=== PATIENT | female | born 1990 | race Caucasian/White ===

== ENCOUNTER → 2024-07-25 13:02 | Outpatient (BNVA) | payer MEDICAID, SELFPAY | PROVIDERS: Family Provider Counselor Professional; PCP Family Medicine; Visit Provider Psychiatry & Neurology Psychiatry | DX: F20.9 Schizophrenia, unspecified (principal) | CPT/HCPCS: 80061; 83036 ==

== ENCOUNTER 2024-08-18 16:36 | Inpatient (IN) | payer MEDICARE, MEDICAID, SELFPAY ==
[2024-07-28 13:04] VITALS: BP 134/81; BMI 26.2
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
[2024-08-18 16:43] VITALS: BP 124/76; PULSE 85; RESP 18; TEMP 36.4; O2SAT 95
--- NOTE | 2024-08-18 17:14 | ECG_ITS ---
[facility]: 2024[facility]08[facility]18 Pat Name: Celia Sevilla Department: Room: Gender: Female Broadcast Journalist: : 1990 Requested By: Sri Babb Order Number: [id number] [place] MD: Ese Ryan M.D. Measurements Intervals [place] Rate: 89 P: 67 MI: 148 QRS: 30 QRSD: 75 T: 39 QT: 339 QTc: 414 Interpretive Statements SINUS RHYTHM LOW QRS VOLTAGE IN PRECORDIAL LEADS [QRS DEFLECTION < 1.0 mV IN CHEST LEADS] No previous ECG available for comparison Electronically Signed On 08-18-2024 17:45:03 CIVIL ENGINEERING TECHNICIAN by Ese Ryan M.D. [email or web address]
[2024-08-18 17:46] LABS: Basophils # 0.1 10^3/uL (0.0-0.1); Basophils % 0.8 %; Eosinophils # 0.4 10^3/uL (0.0-0.8); Hematocrit 47.7 % (36-47); Lymphocytes # 1.5 10^3/uL (0.8-4.8); Lymphocytes % 20.2 %; Mean Corpuscular HGB Conc 33.8 g/dL (30-55); Mean Corpuscular Hemoglobin 30.1 pg (27-33); Mean Corpuscular Volume 89.3 fl (85-98); Mean Platelet Volume 10.4 fL (7.4-10.4); Monocytes # 0.6 10^3/uL (0.2-0.9); Neutrophils # 4.74 10^3/uL (1.8-7.7); Neutrophils % 64.7 %; Nucleated Red Blood Cells % 0 %; Platelet Count 358 10^3/cmm (157-399); Red Blood Count 5.34 10^6/uL (3.85-5.65); Red Cell Distribution Width 13.2 % (12.1-15.1); White Blood Count 7.33 10^3/uL (3.29-11.43)
[2024-08-18 17:57] LABS: HCG, Serum Qual Negative (Negative)
[2024-08-18 18:18] LABS: Alanine Aminotransferase 13 U/L (0-33); Albumin Level 4.6 g/dL (3.5-5.2); Alkaline Phosphatase 79 U/L (35-105); Aspartate Amino Transferase 12 U/L (0-32); Blood Urea Nitrogen 7 mg/dL (6-20); Calcium 9.3 mg/dL (8.5-10.5); Carbon Dioxide 25 mmol/L (22-29); Chloride 101 mmol/L (98-107); Globulin 1.9 g/dL (1.3-4.6); Glomerular Filtration Rate 95.8 mL/min (90-130); Glucose 120 mg/dL (65-115); Osmolality Calculated 283 mOsm/kg (285-295); Salicylate 0.6 mg/dL (3-10); Sodium 137 mmol/L (136-145); Thyroid Stimulating Hormone 2.94 uIU/mL (0.27-4.20); Total Bilirubin 0.2 mg/dL (0.15-1.2); Total Protein 6.5 g/dL (6.6-8.7)
[2024-08-18 18:30] LABS: Acetaminophen < 5.0 ug/mL (10-30); Alcohol Level < 10 mg/dL (0-10)
[2024-08-18 18:51] LABS: Bilirubin Urine Negative (Negative); Blood Urine Negative (Negative); Glucose Urine UA Negative (Normal); Ketones Urine Negative (Negative); Leukocyte Esterase Urine Trace (Negative); Nitrate Urine Negative (Negative); Protein Urine Negative (Negative); Specific Gravity, Urine 1.012 (1.005-1.030); Urine Appearance Clear (CLEAR); Urine Color Yellow (Yellow); pH Urine 6.5 (5-7)
[2024-08-18 18:56] LABS: Bacteria Urine 2+ /hpf; Hyaline Casts Urine 0-4 /lpf; RBC Urine 0-2 /hpf (0-2); WBC Urine 0-5 /hpf (0-5)
[2024-08-18 18:58] LABS: Amphetamines Screen Urine Negative (Negative); Barbiturates Screen Urine Negative (Negative); Benzodiazepines Screen Urine Negative (Negative); Cocaine Screen Urine Negative (Negative); Opiate Screen Urine Negative (Negative); PCP Screen Urine Negative (Negative); THC Screen Urine Negative (Negative)
--- NOTE | 2024-08-18 19:21 | PC.NURSE ---
I, Integrated Circuit Design Engineer, read patient her rights at 1645 as patient was sitting in a swanson bed chair. Patient stated that she had been 96'd 90 times before but I still read over her rights with her and gave her a copy of the rights paperwork. Patient accepted without incident.
[2024-08-18 20:50] VITALS: BP 109/74; PULSE 82; RESP 16; O2SAT 99
[2024-08-18 21:50] VITALS: BP 108/80; PULSE 80; RESP 17; TEMP 36.8; O2SAT 100
[2024-08-18 22:00] VITALS: BP 108/80; PULSE 80; RESP 17; TEMP 36.8; O2SAT 100
--- NOTE | 2024-08-18 22:23 | PC.ADMIT ---
[address] Admission Note: The patient,Celia Sevilla,34 y/o, was given written information regarding hospital policies, unit procedures and contact persons. Patient's smoking status: current every day smoker. Vital Signs - 8 hr 08/18/24 16:43 08/18/24 20:50 08/18/24 21:50 Temperature 97.6 F 98.2 F Pulse Rate 85 82 80 Respiratory Rate 18 16 17 Blood Pressure 124/76 109/74 108/80 Pulse Oximetry 95 99 100 Oxygen Delivery Method Room Air 08/18/24 22:00 08/18/24 22:15 Temperature 98.2 F Pulse Rate 80 Respiratory Rate 17 Blood Pressure 108/80 Pulse Oximetry 100 Oxygen Delivery Method Room Air ADMITTED FROM [facility] VIA WHEELCHAIR, SECURITY AND ER STAFF ON INVOLUNTARY 96 HOUR HOLD THAT ENDS ON 08/25/24 @ 1645. EVASIVE WITH ASSESSMENT, ANSWERS EVERY QUESTION NO OR PT DENIES. DENIES ANY AND ALL SUBSTANCE ABUSE. STATES SHE WAS IN A [facility]AT[facility] H[facility] AT [facility] 6 MONTHS AGO AND THAT SHE HAS A THERAPIST APPOINTMENT SET UP IN [place] NEXT WEEK. DENIES SI/HI AND AVH AT THIS TIME. PT DENIES BEING DIAGNOSED WITH SCHIZOPHRENIA OR ANY OTHER PSYCHIATRIC DIAGNOSIS, STATING I DON'T THINK ANYTHINGS WRONG WITH ME, I WAS JUST SLEEPING AND THEY BROUGHT ME HERE. PHARMACY LIST SHOWS PT PICKED UP LITHIUM, BUPROPRON, TOPAMAX, COGENTIN AND TRAZODONE ON 07/25/24 BUT PT STATE SHE DOES NOT TAKE ANY OF THOSE MEDS ANYMORE, I DON'T NEED THEM. DENIES PAIN. REPORTS LAST BM 08/18/24. SKIN ASSESSMENT COMPLETED AND IS UNREMARKABLE SHOWING NO ISSUES. RATES ANXIETY 4/10 AND DEPRESSION 5/10. OFFERED MEDICATIONS FOR ANXIETY AND TO SLEEP, PT DENIED. PT WAS GIVEN CHIPS, SANDWICH AND A DRINK AND SHE CONSUMED 100%. ORIENTATED TO UNIT. ASSISTED TO HER ROOM AND SHE LAID DOWN AND WENT TO SLEEP. SUPPORT WAS VOICED.
[2024-08-19 01:06] LABS: Lithium 0.4 mmol/L (0.6-1.2)
[2024-08-19 06:00] VITALS: BP 109/77; PULSE 101; RESP 17; TEMP 36.6; O2SAT 99
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
[2024-08-19] MEDS: nicotine 2 mg Gum BUCCAL (13:37)
[2024-08-19 14:00] VITALS: BP 129/86; PULSE 96; RESP 18; TEMP 36.6; O2SAT 99
[2024-08-19 22:00] VITALS: BP 119/80; PULSE 94; RESP 17; TEMP 36.7; O2SAT 98
[2024-08-20 06:00] VITALS: BP 95/67; PULSE 92; RESP 16; TEMP 36.7; O2SAT 96
[2024-08-20] MEDS: nicotine 2 mg Gum BUCCAL ×4 (08:06→19:56)
--- NOTE | 2024-08-20 09:05 | P.NPUPN_ITS ---
Subjective NPU 2 Subjective: Patient presented today seeming to be a bit animated per staff reports and direct observation. She reports that she is fine and denied any problems but spent the time asking strange questions like whether or not studied - [employer] but could not seem to describe what she meant then went on to speak about things possibly related to [place]. Otherwise she talked about wanting to be discharged and was unwilling to really talk about psychosis. Or medication. Mental Status Exam 2 MSE Comments: This is a well-nourished well-developed white female in hospital scrubs with limited grooming and eye contact. No abnormal movements, except for psychomotor retardation. Somewhat cooperative with exam in mild to moderate distress. Speech was increased rate and mostly normal volume. Mood described as I am fine but I do not want to be here; affect slightly subdued and irritable. Thought process, linear. Thought content: patient denied suicidal or homicidal thoughts/ideation, there were no delusions reported or noted but she did appeared guarded and having hyperreligious delusions, she denied auditory visual hallucinations but concerns for downplaying any symptoms was present. The patient denies any current thoughts of self-harm or harm to others. She denies any symptoms of depression, anxiety, or psychosis. She also denies any obsessive thoughts, paranoia, or auditory or visual hallucinations. Her mood appears irritable during the consultation. Attention and concentration appeared intact, and memory was unreliable, but none were formally tested. She is alert and oriented times person and place. Insight and judgment are impaired. Impulse control is impaired. Vitals/I&O/Wt Last Vital Signs Temp 98.0 F 08/20/24 06:00 Pulse 92 08/20/24 06:00 Resp 16 08/20/24 06:00 BP 95/67 08/20/24 06:00 Pulse Ox 96 08/20/24 06:00 O2 Del Method Room Air 08/18/24 22:15 08/19/24 08/20/24 08/20/24 22:59 06:59 14:59 Intake Total 440 / 440 Balance 440 / 440 Weight last 48 hrs Weight 61.779 kg Weight 60.419 kg Data NPU 08/18/24 17:22 08/18/24 17:22 A&P Assessment and plan (1) Acute psychosis: (2) Chronic schizophrenia: (3) Parent-child relational problem: (4) Noncompliance with medication regimen: Plan This is a 34-year-old white female with a long history of mental health and addiction issues with inpatient and outpatient services at [facility] on a limited basis going back to 2015 who presents on a 96-hour hold that she reports just represents her mother trying to control her. The patient appears irritable but denied any issues currently other than the conflict with her family denying depression, anxiety, or psychosis. She reports ongoing familial conflict with her mother, which seems to be a significant psychosocial stressor in her life. She has a history of substance use disorder but denies any current substance abuse issues. 1.? Consider restarting medications. She continues to be resistant to medication 2.? Continue every 15 minute checks for safety. 3.? Encourage individual, group and milieu therapies. 4. Encourage sober living treatment after discharge at the highest level care to which she is willing to commit. 5. Get collateral information. 6. Evaluate for safety against the backdrop of 96-hour hold. Involuntary Hold Information 2 96 Hour Hold: 96 Hour Involuntary Admission: Yes 96 Hour Hold Ending Date: 08/25/24 96 Hour Hold Ending Time: 16:45 Attestations NPU 2 Medical Necessity Statement*: Inpatient hospitalization is medically necessary and the clinically appropriate intervention at this time. Will monitor/initiate medications and make changes as indicated. Likely length of stay 5 to 7 days. Coding Level of Care Code Acute Code for Chg Fwd Diagnoses Acute psychosis F23 Chronic schizophrenia F20.9 Parent-child relational problem Z62.820 Noncompliance with medication regimen Z91.148
[2024-08-20 14:00] VITALS: BP 114/77; PULSE 70; RESP 16; TEMP 36.7; O2SAT 100
[2024-08-20 21:14] VITALS: BP 105/67; PULSE 60; RESP 18; TEMP 36.6; O2SAT 99
[2024-08-21 05:47] VITALS: BP 114/86; PULSE 81; RESP 18; TEMP 36.4; O2SAT 97
[2024-08-21] MEDS: nicotine 2 mg Gum BUCCAL (10:05)
[2024-08-21 14:00] VITALS: BP 117/81; PULSE 103; RESP 16; TEMP 36.9; O2SAT 96
[2024-08-21 20:09] VITALS: BP 130/86; PULSE 75; RESP 16; TEMP 36.6; O2SAT 97
--- NOTE | 2024-08-21 20:58 | W.PM.NPUPNS ---
Subjective NPU Subjective: Patient presented today reporting that she was fine. She continued to deny any interest in restarting past medication or initiating new medication. She continued to have moments where she seemed to be speaking to herself under her breath per staff reports and direct observation. She continued to downplay any symptoms, any problems outside of here, any need for any intervention other than being discharged. Mental Status Exam MSE Comments: This is a well-nourished well-developed white female in hospital scrubs with limited grooming and eye contact. No abnormal movements, except for psychomotor retardation. Somewhat cooperative with exam in mild to moderate distress. Speech was increased rate and mostly normal volume with no where the pauses after many questions. Mood described as I am fine but I do not want to be here; affect slightly subdued and irritable. Thought process, linear. Thought content: patient denied suicidal or homicidal thoughts/ideation, there were no delusions reported or noted but she did appeared guarded and having hyperreligious delusions, she denied auditory or visual hallucinations but concerns for downplaying any symptoms was present. The patient denies any current thoughts of self-harm or harm to others. She denies any symptoms of depression, anxiety, or psychosis. She also denies any obsessive thoughts, paranoia, or auditory or visual hallucinations. Her mood appears irritable during the consultation and she was seen often mouthing to herself instead of giving an audible response. Attention and concentration appeared intact, and memory was unreliable, but none were formally tested. She is alert and oriented times person and place. Insight and judgment are impaired. Impulse control is impaired. Vitals/I&O/Wt Last Vital Signs Temp 97.8 F 08/21/24 20:09 Pulse 75 08/21/24 20:09 Resp 16 08/21/24 20:09 BP 130/86 08/21/24 20:09 Pulse Ox 97 08/21/24 20:09 O2 Del Method Room Air 08/21/24 20:09 Weight last 48 hrs Weight 61.779 kg Data NPU 08/18/24 17:22 08/18/24 17:22 A&P Assessment and plan (1) Acute psychosis: (2) Chronic schizophrenia: (3) Parent-child relational problem: (4) Noncompliance with medication regimen: Plan This is a 34-year-old white female with a long history of mental health and addiction issues with inpatient and outpatient services at [facility] on a limited basis going back to 2016 who presents on a 96-hour hold that she reports just represents her mother trying to control her. The patient appears irritable but denied any issues currently other than the conflict with her family denying depression, anxiety, or psychosis. She reports ongoing familial conflict with her mother, which seems to be a significant psychosocial stressor in her life. She has a history of substance use disorder but denies any current substance abuse issues. 1.? Consider restarting medications. She continues to be resistant to medication including restarting her previous medication. May need a 21-day hold and forced medication. 2.? Continue every 15 minute checks for safety. 3.? Encourage individual, group and milieu therapies. 4. Encourage sober living treatment after discharge at the highest level care to which she is willing to commit. 5. Get collateral information. 6. Evaluate for safety against the backdrop of 96-hour hold. Involuntary Hold Information 96 Hour Hold: 96 Hour Involuntary Admission: Yes 96 Hour Hold Ending Date: 08/25/24 96 Hour Hold Ending Time: 16:45 Attestations NPU Medical Necessity Statement*: Inpatient hospitalization is medically necessary and the clinically appropriate intervention at this time. Will monitor/initiate medications and make changes as indicated. Likely length of stay 5 to 7 days. Coding Level of Care Code Acute Code for Chg Fwd Diagnoses Acute psychosis F23 Chronic schizophrenia F20.9 Parent-child relational problem Z62.820 Noncompliance with medication regimen Z91.148
[2024-08-22 06:00] VITALS: BP 118/77; PULSE 89; RESP 15; TEMP 36.7; O2SAT 99
[2024-08-22 13:44] VITALS: BP 115/78; PULSE 73; RESP 16; TEMP 36.8; O2SAT 97
[2024-08-22] MEDS: nicotine 2 mg Gum BUCCAL (17:28)
--- NOTE | 2024-08-22 17:42 | W.PM.NPUPNS ---
Subjective NPU Subjective: Patient presented today continuing to be resistant to medication and almost defiantly saying I am fine. We continue to discuss our concerns about her being off of medication and having the somewhat mercurial behavior that were seeing around the unit. We talked about the treatment team speaking to her family and there being concerns about how she is functioning. She continued to deny there being any reason to start any medication now that she would take care of everything once she was out of the hospital. Mental Status Exam MSE Comments: This is a well-nourished well-developed white female in hospital scrubs with limited grooming and eye contact. No abnormal movements, except for psychomotor retardation. Somewhat cooperative with exam in mild to moderate distress. Speech was increased rate and mostly normal volume with no where the pauses after many questions. Mood described as I am fine but I do not want to be here; affect slightly subdued and irritable. Thought process, linear. Thought content: patient denied suicidal or homicidal thoughts/ideation, there were no delusions reported or noted but she did appeared guarded and having hyperreligious delusions, she denied auditory or visual hallucinations but concerns for downplaying any symptoms was present. The patient denies any current thoughts of self-harm or harm to others. She denies any symptoms of depression, anxiety, or psychosis. She also denies any obsessive thoughts, paranoia, or auditory or visual hallucinations. Her mood appears irritable during the consultation and she was seen often mouthing to herself instead of giving an audible response. Attention and concentration appeared intact, and memory was unreliable, but none were formally tested. She is alert and oriented times person and place. Insight and judgment are impaired. Impulse control is impaired. Vitals/I&O/Wt Last Vital Signs Temp 98.2 F 08/22/24 13:44 Pulse 73 08/22/24 13:44 Resp 16 08/22/24 13:44 BP 115/78 08/22/24 13:44 Pulse Ox 97 08/22/24 13:44 O2 Del Method Room Air 08/22/24 13:44 Data NPU 08/18/24 17:22 08/18/24 17:22 A&P Assessment and plan (1) Acute psychosis: (2) Chronic schizophrenia: (3) Parent-child relational problem: (4) Noncompliance with medication regimen: Plan This is a 34-year-old white female with a long history of mental health and addiction issues with inpatient and outpatient services at [facility] on a limited basis going back to 2016 who presents on a 96-hour hold that she reports just represents her mother trying to control her. The patient appears irritable but denied any issues currently other than the conflict with her family denying depression, anxiety, or psychosis. She reports ongoing familial conflict with her mother, which seems to be a significant psychosocial stressor in her life. She has a history of substance use disorder but denies any current substance abuse issues. 1.? Consider restarting medications. She continues to be resistant to medication including restarting her previous medication. May need a 21-day hold and forced medication. 2.? Continue every 15 minute checks for safety. 3.? Encourage individual, group and milieu therapies. 4. Encourage sober living treatment after discharge at the highest level care to which she is willing to commit. 5. Get collateral information. 6. Evaluate for safety against the backdrop of 96-hour hold. Involuntary Hold Information 96 Hour Hold: 96 Hour Involuntary Admission: Yes 96 Hour Hold Ending Date: 08/25/24 96 Hour Hold Ending Time: 16:45 Attestations U Medical Necessity Statement*: Inpatient hospitalization is medically necessary and the clinically appropriate intervention at this time. Will monitor/initiate medications and make changes as indicated. Likely length of stay 5 to 7 days. Coding Level of Care Code Acute Code for Chg Fwd Diagnoses Acute psychosis F23 Chronic schizophrenia F20.9 Parent-child relational problem Z62.820 Noncompliance with medication regimen Z91.148
[2024-08-22 20:22] VITALS: BP 119/78; PULSE 80; RESP 18; TEMP 36.8; O2SAT 100
[2024-08-23 06:00] VITALS: RESP 16
--- NOTE | 2024-08-23 06:28 | PC.NURSE ---
pt is finally resting got resp 16 nurse notified
[2024-08-23 14:00] VITALS: BP 93/78; PULSE 80; RESP 18; TEMP 37.1; O2SAT 92
--- NOTE | 2024-08-23 15:48 | P.NPUPN_ITS ---
Subjective NPU 2 Subjective: Patient presented today essentially unchanged and her position on her situation. She continues to report that she is fine and there are no problems and that there is no need to initiate medication or engage in any significant treatment. She informs this program writer that once she is discharged she will arrange any treatment that she needs and take care of any concerns. She continues to endorse that her mother is the source of this issue and it has something to do with her mother owing her some money or something of that sort. We continue to discussed the risks, benefits and alternatives of initiating medication and she continues to decline. Mental Status Exam 2 MSE Comments: This is a well-nourished well-developed white female in hospital scrubs with limited grooming and eye contact. No abnormal movements, except for psychomotor retardation. Somewhat cooperative with exam in mild to moderate distress. Speech was increased rate and mostly normal volume with no where the pauses after many questions. Mood described as I am fine but I do not want to be here; affect slightly subdued and irritable. Thought process, linear. Thought content: patient denied suicidal or homicidal thoughts/ideation, there were no delusions reported or noted but she did appeared guarded and having hyperreligious delusions, she denied auditory or visual hallucinations but concerns for downplaying any symptoms was present. The patient denies any current thoughts of self-harm or harm to others. She denies any symptoms of depression, anxiety, or psychosis. She also denies any obsessive thoughts, paranoia, or auditory or visual hallucinations. Her mood appears irritable during the consultation and she was seen often mouthing to herself instead of giving an audible response. Attention and concentration appeared intact, and memory was unreliable, but none were formally tested. She is alert and oriented times person and place. Insight and judgment are impaired. Impulse control is impaired. Vitals/I&O/Wt Last Vital Signs Temp 98.7 F 08/23/24 14:00 Pulse 80 08/23/24 14:00 Resp 18 08/23/24 14:00 BP 93/78 08/23/24 14:00 Pulse Ox 92 08/23/24 14:00 O2 Del Method Room Air 08/22/24 13:44 Data NPU 08/18/24 17:22 08/18/24 17:22 A&P Assessment and plan (1) Acute psychosis: (2) Chronic schizophrenia: (3) Parent-child relational problem: (4) Noncompliance with medication regimen: Plan This is a 34-year-old white female with a long history of mental health and addiction issues with inpatient and outpatient services at [facility] on a limited basis going back to 2016 who presents on a 96-hour hold that she reports just represents her mother trying to control her. The patient appears irritable but denied any issues currently other than the conflict with her family denying depression, anxiety, or psychosis. She reports ongoing familial conflict with her mother, which seems to be a significant psychosocial stressor in her life. She has a history of substance use disorder but denies any current substance abuse issues. 1.? Consider restarting medications. She continues to be resistant to medication including restarting her previous medication. May need a 21-day hold and forced medication. 2.? Continue every 15 minute checks for safety. 3.? Encourage individual, group and milieu therapies. 4. Encourage sober living treatment after discharge at the highest level care to which she is willing to commit. 5. Get collateral information. 6. Evaluate for safety against the backdrop of 96-hour hold. Involuntary Hold Information 2 96 Hour Hold: 96 Hour Involuntary Admission: Yes 96 Hour Hold Ending Date: 08/25/24 96 Hour Hold Ending Time: 16:45 Attestations NPU 2 Medical Necessity Statement*: Inpatient hospitalization is medically necessary and the clinically appropriate intervention at this time. Will monitor/initiate medications and make changes as indicated. Likely length of stay 5 to 7 days. Coding Level of Care Code Acute Code for Chg Fwd Diagnoses Acute psychosis F23 Chronic schizophrenia F20.9 Parent-child relational problem Z62.820 Noncompliance with medication regimen Z91.148
[2024-08-23] MEDS: nicotine 2 mg Gum BUCCAL (17:58)
[2024-08-23 20:10] VITALS: BP 119/74; PULSE 112; RESP 19; TEMP 36.9; O2SAT 99
[2024-08-24 06:00] VITALS: BP 120/60; PULSE 66; RESP 16; TEMP 37; O2SAT 96
[2024-08-24] MEDS: nicotine 2 mg Gum BUCCAL (08:32)
--- NOTE | 2024-08-24 14:17 | PC.NURSE ---
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
[2024-08-24 14:22] VITALS: RESP 18
--- NOTE | 2024-08-24 18:38 | W.PM.NPUPNS ---
Subjective NPU Subjective: Patient presented today continuing to stay with her plan of not taking any medication. She continues to deny any need for medication but continues to have odd behaviors per staff and direct observation. She continues to be irritable per staff and continues to say that the only reason why she is here is that her mother owes her money and is trying to get her stuck here. She refuses any conversation about restarting her medication. Mental Status Exam MSE Comments: This is a well-nourished well-developed white female in hospital scrubs with limited grooming and eye contact. No abnormal movements, except for psychomotor retardation. Somewhat cooperative with exam in mild to moderate distress. Speech was increased rate and mostly normal volume with no where the pauses after many questions. Mood described as I am fine but I do not want to be here; affect slightly subdued and irritable. Thought process, linear. Thought content: patient denied suicidal or homicidal thoughts/ideation, there were no delusions reported or noted but she did appeared guarded and having hyperreligious delusions, she denied auditory or visual hallucinations but concerns for downplaying any symptoms was present. The patient denies any current thoughts of self-harm or harm to others. She denies any symptoms of depression, anxiety, or psychosis. She also denies any obsessive thoughts, paranoia, or auditory or visual hallucinations. Her mood appears irritable during the consultation and she was seen often mouthing to herself instead of giving an audible response. Attention and concentration appeared intact, and memory was unreliable, but none were formally tested. She is alert and oriented times person and place. Insight and judgment are impaired. Impulse control is impaired. Vitals/I&O/Wt Last Vital Signs Temp 98.6 F 08/24/24 06:00 Pulse 66 08/24/24 06:00 Resp 16 08/24/24 06:00 BP 120/60 08/24/24 06:00 Pulse Ox 96 08/24/24 06:00 O2 Del Method Room Air 08/22/24 13:44 08/24/24 08/25/24 08/25/24 22:59 06:59 14:59 Intake Total 120 / 560 Balance 120 / 560 Data NPU 08/18/24 17:22 08/18/24 17:22 A&P Assessment and plan (1) Acute psychosis: (2) Chronic schizophrenia: (3) Parent-child relational problem: (4) Noncompliance with medication regimen: Plan This is a 34-year-old white female with a long history of mental health and addiction issues with inpatient and outpatient services at [facility] on a limited basis going back to 2016 who presents on a 96-hour hold that she reports just represents her mother trying to control her. The patient appears irritable but denied any issues currently other than the conflict with her family denying depression, anxiety, or psychosis. She reports ongoing familial conflict with her mother, which seems to be a significant psychosocial stressor in her life. She has a history of substance use disorder but denies any current substance abuse issues. 1.? Consider restarting medications. She continues to be resistant to medication including restarting her previous medication. May need a 21-day hold and forced medication. 2.? Continue every 15 minute checks for safety. 3.? Encourage individual, group and milieu therapies. 4. Encourage sober living treatment after discharge at the highest level care to which she is willing to commit. 5. Get collateral information. 6. Evaluate for safety against the backdrop of 96-hour hold. We will either discharge her or file a 21-day hold tomorrow. Involuntary Hold Information 96 Hour Hold: 96 Hour Involuntary Admission: Yes 96 Hour Hold Ending Date: 08/25/24 96 Hour Hold Ending Time: 16:45 Attestations U Medical Necessity Statement*: Inpatient hospitalization is medically necessary and the clinically appropriate intervention at this time. Will monitor/initiate medications and make changes as indicated. Likely length of stay 5 to 7 days. Coding Level of Care Code Acute Code for [facility] Fwd Diagnoses Acute psychosis F23 Chronic schizophrenia F20.9 Parent-child relational problem Z62.820 Noncompliance with medication regimen Z91.148
[2024-08-24 19:55] VITALS: RESP 18
--- NOTE | 2024-08-24 19:55 | PC.NURSE ---
pt very agitated talking to self when asked if i could get vitals pt stated no i dont need them done. nurse notified
[2024-08-25 06:00] VITALS: RESP 16
--- NOTE | 2024-08-25 06:19 | PC.NURSE ---
pt had a rough night pt is finally resting resp are at 16 nurse notified
[2024-08-25 14:00] VITALS: BP 102/70; PULSE 99; RESP 18; TEMP 36.6; O2SAT 98
--- NOTE | 2024-08-25 16:51 | W.PM.NPUPNS ---
Subjective NPU Subjective: Patient presented today reporting that she was doing fine and continued to initially endorse a plan to move forward without medication. We discussed the fact that we had file for 21-day hold and that her hearing would be likely Wednesday or Wednesday. We discussed our plan at that point to proceed with forced medication and she reported a willingness to try something. We discussed the risks, benefits and alternatives of a trial of Invega and she understood and agreed to proceed as is documented in this note. Mental Status Exam MSE Comments: This is a well-nourished well-developed white female in hospital scrubs with limited grooming and eye contact. No abnormal movements, except for psychomotor retardation. Somewhat cooperative with exam in mild to moderate distress. Speech was increased rate and mostly normal volume with no where the pauses after many questions. Mood described as I am fine but I do not want to be here; affect slightly subdued and irritable. Thought process, linear. Thought content: patient denied suicidal or homicidal thoughts/ideation, there were no delusions reported or noted but she did appeared guarded and having hyperreligious delusions, she denied auditory or visual hallucinations but concerns for downplaying any symptoms was present. The patient denies any current thoughts of self-harm or harm to others. She denies any symptoms of depression, anxiety, or psychosis. She also denies any obsessive thoughts, paranoia, or auditory or visual hallucinations. Her mood appears irritable during the consultation and she was seen often mouthing to herself instead of giving an audible response. Attention and concentration appeared intact, and memory was unreliable, but none were formally tested. She is alert and oriented times person and place. Insight and judgment are impaired. Impulse control is impaired. Vitals/I&O/Wt Last Vital Signs Temp 97.9 F 08/25/24 14:00 Pulse 99 08/25/24 14:00 Resp 18 08/25/24 14:00 BP 102/70 08/25/24 14:00 Pulse Ox 98 08/25/24 14:00 O2 Del Method Room Air 08/25/24 14:00 Data NPU 08/18/24 17:22 08/18/24 17:22 A&P Assessment and plan (1) Acute psychosis: (2) Chronic schizophrenia: (3) Parent-child relational problem: (4) Noncompliance with medication regimen: Plan This is a 34-year-old white female with a long history of mental health and addiction issues with inpatient and outpatient services at [facility] on a limited basis going back to 2015 who presents on a 96-hour hold that she reports just represents her mother trying to control her. The patient appears irritable but denied any issues currently other than the conflict with her family denying depression, anxiety, or psychosis. She reports ongoing familial conflict with her mother, which seems to be a significant psychosocial stressor in her life. She has a history of substance use disorder but denies any current substance abuse issues. 1.? Consider restarting medications. She continues to be resistant to medication including restarting her previous medication. May need a 21-day hold and forced medication. Patient made aware of the 21-day hold filing and timeline to discharge and was agreeable to a trial of Invega 6 mg p.o. daily. 2.? Continue every 15 minute checks for safety. 3.? Encourage individual, group and milieu therapies. 4. Encourage sober living treatment after discharge at the highest level care to which she is willing to commit. 5. Get collateral information. 6. Evaluate for safety against the backdrop of 96-hour hold. Filed for 21-day hold. Involuntary Hold Information 96 Hour Hold: 96 Hour Involuntary Admission: Yes 96 Hour Hold Ending Date: 08/25/24 96 Hour Hold Ending Time: 16:45 Attestations NPU Medical Necessity Statement*: Inpatient hospitalization is medically necessary and the clinically appropriate intervention at this time. Will monitor/initiate medications and make changes as indicated. Likely length of stay 5 to 7 days. Coding Level of Care Code Acute Code for Chg Fwd Diagnoses Acute psychosis F23 Chronic schizophrenia F20.9 Parent-child relational problem Z62.820 Noncompliance with medication regimen Z91.148
[2024-08-25] MEDS: paliperidone ER 6 mg Tablet PO (19:01)
[2024-08-25 19:38] VITALS: BP 111/80; PULSE 62; RESP 18; TEMP 36.8; O2SAT 97
[2024-08-25] MEDS: trazodone 50 mg Tablet PO (21:31)
[2024-08-25] MEDS: hyDROXYzine 25 mg Capsule 50 MG PO (21:31)
[2024-08-25 22:00] VITALS: BP 111/80; PULSE 62; RESP 18; TEMP 36.8; O2SAT 97
[2024-08-26 06:00] VITALS: BP 98/62; PULSE 60; RESP 18; TEMP 36.5; O2SAT 99
[2024-08-26] MEDS: paliperidone ER 6 mg Tablet PO (08:21)
[2024-08-26] MEDS: nicotine 2 mg Gum BUCCAL ×2 (08:21→22:32)
--- NOTE | 2024-08-26 10:57 | W.PM.NPUPNS ---
Subjective NPU Subjective: Patient presented today reporting that she is feeling tired. She has been in bed today and not really been up per staff reports and direct observation. Denies any problems with the medication/Invega which she had taken for the first time yesterday. We discussed the fact that it might take a couple days for her to adjust to it but that Dr. Gaspar would be here tomorrow to follow her improvements on the medication and make changes as indicated. Mental Status Exam MSE Comments: This is a well-nourished well-developed white female in hospital scrubs with limited grooming and eye contact. No abnormal movements, except for psychomotor retardation. Somewhat cooperative with exam in mild to moderate distress. Speech was increased rate and mostly normal volume with no where the pauses after many questions. Mood described as I am fine but I do not want to be here; affect slightly subdued and irritable. Thought process, linear. Thought content: patient denied suicidal or homicidal thoughts/ideation, there were no delusions reported or noted but she did appeared guarded and having hyperreligious delusions, she denied auditory or visual hallucinations but concerns for downplaying any symptoms was present. The patient denies any current thoughts of self-harm or harm to others. She denies any symptoms of depression, anxiety, or psychosis. She also denies any obsessive thoughts, paranoia, or auditory or visual hallucinations. Her mood appears irritable during the consultation and she was seen often mouthing to herself instead of giving an audible response. Attention and concentration appeared intact, and memory was unreliable, but none were formally tested. She is alert and oriented times person and place. Insight and judgment are impaired. Impulse control is impaired. Vitals/I&O/Wt Last Vital Signs Temp 97.9 F 08/26/24 21:05 Pulse 110 H 08/26/24 21:05 Resp 18 08/26/24 21:05 BP 115/70 08/26/24 21:05 Pulse Ox 99 08/26/24 21:05 O2 Del Method Room Air 08/26/24 21:05 Data NPU 08/18/24 17:22 08/18/24 17:22 A&P Assessment and plan (1) Acute psychosis: (2) Chronic schizophrenia: (3) Parent-child relational problem: (4) Noncompliance with medication regimen: Plan This is a 34-year-old white female with a long history of mental health and addiction issues with inpatient and outpatient services at [facility] on a limited basis going back to 2016 who presents on a 96-hour hold that she reports just represents her mother trying to control her. The patient appears irritable but denied any issues currently other than the conflict with her family denying depression, anxiety, or psychosis. She reports ongoing familial conflict with her mother, which seems to be a significant psychosocial stressor in her life. She has a history of substance use disorder but denies any current substance abuse issues. 1.? Consider restarting medications. She continues to be resistant to medication including restarting her previous medication. May need a 21-day hold and forced medication. Patient made aware of the 21-day hold filing and timeline to discharge and was agreeable to a trial of Invega 6 mg p.o. daily. 2.? Continue every 15 minute checks for safety. 3.? Encourage individual, group and milieu therapies. 4. Encourage sober living treatment after discharge at the highest level care to which she is willing to commit. 5. Get collateral information. 6. Evaluate for safety against the backdrop of 96-hour hold. Filed for 21-day hold. Involuntary Hold Information 96 Hour Hold: 96 Hour Involuntary Admission: Yes 96 Hour Hold Ending Date: 08/25/24 96 Hour Hold Ending Time: 16:45 Attestations NPU Medical Necessity Statement*: Inpatient hospitalization is medically necessary and the clinically appropriate intervention at this time. Will monitor/initiate medications and make changes as indicated. Likely length of stay 5 to 7 days. Coding Level of Care Code Acute Code for Chg Fwd Diagnoses Acute psychosis F23 Chronic schizophrenia F20.9 Parent-child relational problem Z62.820 Noncompliance with medication regimen Z91.148
[2024-08-26] MEDS: hyDROXYzine 25 mg Capsule 50 MG PO ×2 (13:54→22:32)
[2024-08-26 14:00] VITALS: BP 115/70; PULSE 119; RESP 18; TEMP 36.4; O2SAT 97
[2024-08-26] MEDS: haloperidol 5 mg Tablet PO (14:23)
--- NOTE | 2024-08-26 14:24 | PC.NURSE ---
Patient frantically pacing [place]anson, talking to herself, saying random things that don't line up to her present situation. Patient given haldol 5mg PO. Patient agreeable to take medication.
[2024-08-26] MEDS: LORazepam 2 mg Tablet PO (14:36)
[2024-08-26] MEDS: diphenhydrAMINE 50 mg Capsule PO (14:37)
[2024-08-26 21:05] VITALS: BP 115/70; PULSE 110; RESP 18; TEMP 36.6; O2SAT 99
[2024-08-26] MEDS: trazodone 50 mg Tablet PO (22:32)
[2024-08-27] MEDS: hyDROXYzine 25 mg Capsule 50 MG PO (05:31)
[2024-08-27 06:00] VITALS: BP 112/78; PULSE 99; RESP 16; TEMP 36.6; O2SAT 98; BMI 27.1
[2024-08-27] MEDS: paliperidone ER 6 mg Tablet PO (08:58)
[2024-08-27] MEDS: nicotine 2 mg Gum BUCCAL (08:58)
[2024-08-27] MEDS: haloperidol 5 mg Tablet PO ×2 (08:58→13:48)
--- NOTE | 2024-08-27 10:04 | PC.NURSE ---
Morning assessment Patient flippant and irritable during morning assessment. Patient denies depression, AVH, suicidal thoughts, homicidal thoughts. Patient reports anxiety. This nurse administered haldol for anxiety as well as for the AVH. Despite patient denying AVH, it is evident from observation that patient is responding to internal stimuli.
[2024-08-27] MEDS: diphenhydrAMINE 50 mg Capsule PO (13:48)
[2024-08-27 13:59] VITALS: BP 104/69; PULSE 80; RESP 16; TEMP 36.4; O2SAT 96
--- NOTE | 2024-08-27 18:37 | P.NPUPN_ITS ---
Subjective NPU 2 Subjective: 34-year-old female with a history of psy chosis and history of addiction who was admitted with disorganized thinking and behavior. Patient had reported that she was feeling better today. She had stated that she would be agreeable to taking a monthly shot of Invega and stated that her family member had been unable to take her to her monthly appointments thus leading to her stopping her Invega previously. The patient had reported that she had been feeling less irritable. She had reported adequate sleep. Previous records had indicated the patient had been on a decannulate shot in the past as well. She had acknowledged being treated with lithium but was uncertain as to why she had taken this medication. She had expressed anger at not being released from the hospital yesterday when her treatment hold had but was informed that a 96-hour continued stay had been filed by the previous physician. Mental Status Exam 2 MSE Comments: This is a well-nourished well-developed white female in hospital scrubs with limited grooming and eye contact. No abnormal movements, except for psychomotor retardation. Somewhat cooperative with exam in mild to moderate distress. Speech was increased rate and mostly normal volume with no where the pauses after many questions. Mood described as okay. Her affect was somewhat odd. Thought process was linear. Thought content: patient denied suicidal or homicidal thoughts/ideation, there were no delusions reported or noted but she did appear at times paranoid. She denied auditory or visual hallucinations but concerns for downplaying any symptoms was present. The patient denies any current thoughts of self-harm or harm to others. She denies any symptoms of depression, anxiety, or psychosis. She also denies any obsessive thoughts, paranoia, or auditory or visual hallucinations. She is alert and oriented times person and place. Insight and judgment are impaired. Impulse control is impaired. Vitals/I&O/Wt Last Vital Signs Temp 97.6 F 08/27/24 13:59 Pulse 80 08/27/24 13:59 Resp 16 08/27/24 13:59 BP 104/69 08/27/24 13:59 Pulse Ox 96 08/27/24 13:59 O2 Del Method Room Air 08/27/24 13:59 08/27/24 08/27/24 08/27/24 06:59 14:59 22:59 Intake Total 120 / 120 Balance 120 / 120 Weight last 48 hrs Weight 67.245 kg Data NPU 08/18/24 17:22 08/18/24 17:22 A&P Assessment and plan (1) Acute psychosis: (2) Chronic schizophrenia: (3) Parent-child relational problem: (4) Noncompliance with medication regimen: Plan This is a 34-year-old white female with a long history of mental health and addiction issues with inpatient and outpatient services at [facility] on a limited basis going back to 2015 who presents on a 96-hour hold that she reports just represents her mother trying to control her. The patient appears irritable but denied any issues currently other than the conflict with her family denying depression, anxiety, or psychosis. She reports ongoing familial conflict with her mother, which seems to be a significant psychosocial stressor in her life. She has a history of substance use disorder but denies any current substance abuse issues. 1.? Consider restarting medications. She continues to be resistant to medication including restarting her previous medication. May need a 21-day hold and forced medication. Patient made aware of the 21-day hold filing and timeline to discharge and was agreeable to a trial of Invega 6 mg p.o. daily. Will switch to IM invega to target psychosis. 2.? Continue every 15 minute checks for safety. 3.? Encourage individual, group and milieu therapies. 4. Encourage sober living treatment after discharge at the highest level care to which she is willing to commit. 5. Get collateral information. 6. Evaluate for safety against the backdrop of 96-hour hold. Filed for 21-day hold. Involuntary Hold Information 2 96 Hour Hold: 96 Hour Involuntary Admission: Yes 96 Hour Hold Ending Date: 08/25/24 96 Hour Hold Ending Time: 16:45 Attestations NPU 2 Medical Necessity Statement*: Inpatient hospitalization is medically necessary and the clinically appropriate intervention at this time. Will monitor/initiate medications and make changes as indicated. Likely length of stay 5 to 7 days. Coding Level of Care Code Acute Code for Chg Fwd Diagnoses Acute psychosis F23 Chronic schizophrenia F20.9 Parent-child relational problem Z62.820 Noncompliance with medication regimen Z91.148
[2024-08-27 20:11] VITALS: BP 114/79; PULSE 97; RESP 16; TEMP 36.6; O2SAT 99
[2024-08-28 06:00] VITALS: BP 105/72; PULSE 96; RESP 17; TEMP 36.6; O2SAT 96
[2024-08-28] MEDS: buPROPion XL (24 HR) 150 mg Tablet PO (09:22)
[2024-08-28] MEDS: nicotine 2 mg Gum BUCCAL ×2 (09:22→11:42)
[2024-08-28] MEDS: paliperidone ER 6 mg Tablet PO (09:22)
[2024-08-28] MEDS: hyDROXYzine 25 mg Capsule 50 MG PO ×2 (09:22→15:21)
[2024-08-28] MEDS: OLANZapine 5 mg ODT PO ×2 (12:45→17:05)
--- NOTE | 2024-08-28 13:06 | PC.NURSE ---
Patient wanting to be restarted on her medications from Dr. Yoandy Willis from [facility] in [place]. Patient wanting her lithium, olanzapine, and something else restarted. This nurse contacted [facility]. Dr. Willis's nurse is to return call with medication information. Patient made away
[2024-08-28 14:00] VITALS: BP 119/51; PULSE 93; RESP 18; TEMP 36.2; O2SAT 99
[2024-08-28] MEDS: paliperidone palmitate 234 mg Syringe IM (15:17)
--- NOTE | 2024-08-28 15:27 | PC.NURSE ---
Andria steiner Administered invega 234mg/1.5mL into patient's right ventrogluteal muscle. Patient tolerated this well. LOT: [id number] EXP: 10/05
--- NOTE | 2024-08-28 16:14 | P.NPUPN_ITS ---
Subjective NPU 2 Subjective: 34-year-old female with a history of psy chosis and history of addiction who was admitted with disorganized thinking and behavior. The patient had reported that she wished to leave soon. She had reported a history of hallucinations and acknowledged a history of having periods of intense irritability. She reported a history of noncompliance with her previous medications. The patient reported no side effects from her intramuscular Invega given today at 234 mg daily. She had reported that the voices had been better. She reported that she had not been feeling depressed. Mental Status Exam 2 MSE Comments: This is a well-nourished well-developed white female in hospital scrubs with limited grooming and eye contact. No abnormal movements, except for psychomotor retardation. Somewhat cooperative with exam in mild to moderate distress. Speech was normal in rate and mostly normal volume with no where the pauses after many questions. Mood described as okay. Her affect was subdued. Thought process was linear. Thought content: patient denied suicidal or homicidal thoughts/ideation, there were no delusions reported or noted but she did appear at times paranoid. She denied auditory or visual hallucinations but did appear to be responding to internal stimuli. The patient denies any current thoughts of self-harm or harm to others. She denies any symptoms of depression, anxiety, or psychosis. She also denies any obsessive thoughts, paranoia, or auditory or visual hallucinations. She is alert and oriented times person and place. Insight and judgment are impaired. Impulse control is impaired. Vitals/I&O/Wt Last Vital Signs Temp 97.2 F L 08/28/24 14:00 Pulse 93 08/28/24 14:00 Resp 18 08/28/24 14:00 BP 119/51 08/28/24 14:00 Pulse Ox 99 08/28/24 14:00 O2 Del Method Room Air 08/28/24 06:00 Weight last 48 hrs Weight 67.245 kg Data NPU 08/18/24 17:22 08/18/24 17:22 A&P Assessment and plan (1) Acute psychosis: (2) Chronic schizophrenia: (3) Parent-child relational problem: (4) Noncompliance with medication regimen: Plan This is a 34-year-old white female with a long history of mental health and addiction issues with inpatient and outpatient services at [facility] on a limited basis going back to 2016 who presents on a 96-hour hold that she reports just represents her mother trying to control her. The patient appears irritable but denied any issues currently other than the conflict with her family denying depression, anxiety, or psychosis. She reports ongoing familial conflict with her mother, which seems to be a significant psychosocial stressor in her life. She has a history of substance use disorder but denies any current substance abuse issues. 1.? Patient given 234mg INvega IM today, continue oral 6mg invega. Hold on lithium given her history of noncompliance with medication. Continue wellbutrin xl 150mg daily. 2.? Continue every 15 minute checks for safety. 3.? Encourage individual, group and milieu therapies. 4. Encourage sober living treatment after discharge at the highest level care to which she is willing to commit. 5. Get collateral information. 6. Evaluate for safety against the backdrop of 96-hour hold. Filed for 21-day hold. Involuntary Hold Information 2 96 Hour Hold: 96 Hour Involuntary Admission: Yes 96 Hour Hold Ending Date: 08/25/24 96 Hour Hold Ending Time: 16:45 Attestations NPU 2 Medical Necessity Statement*: Inpatient hospitalization is medically necessary and the clinically appropriate intervention at this time. Will monitor/initiate medications and make changes as indicated. Likely length of stay 3-4 days. Coding Level of Care Code Acute Code for Chg Fwd Diagnoses Acute psychosis F23 Chronic schizophrenia F20.9 Parent-child relational problem Z62.820 Noncompliance with medication regimen Z91.148
[2024-08-28] MEDS: haloperidol 5 mg Tablet PO (19:44)
[2024-08-28] MEDS: trazodone 50 mg Tablet PO (20:14)
[2024-08-28 20:39] VITALS: BP 107/62; PULSE 94; RESP 18; TEMP 36.8; O2SAT 96
[2024-08-29 06:00] VITALS: BP 107/75; PULSE 88; RESP 16; TEMP 36.6; O2SAT 97
[2024-08-29] MEDS: buPROPion XL (24 HR) 150 mg Tablet PO (08:22)
[2024-08-29] MEDS: paliperidone ER 6 mg Tablet PO (08:22)
--- NOTE | 2024-08-29 11:21 | PC.NURSE ---
Pt escorted off of the unit with the [facility] for court.
--- NOTE | 2024-08-29 11:45 | PC.NURSE ---
At 1145 patient arrived back on unit from court.
[2024-08-29] MEDS: nicotine 2 mg Gum BUCCAL (12:13)
[2024-08-29] MEDS: OLANZapine 5 mg ODT PO ×2 (12:26→16:19)
[2024-08-29] MEDS: haloperidol 5 mg Tablet PO (12:50)
[2024-08-29 14:00] VITALS: BP 120/80; PULSE 112; RESP 18; TEMP 36.6; O2SAT 96
--- NOTE | 2024-08-29 17:18 | P.NPUPN_ITS ---
Subjective NPU 2 Subjective: 34-year-old female with a history of psy chosis and history of addiction who was admitted with disorganized thinking and behavior. The patient was placed on a 21-day hold today. She had remained compliant on the milieu. She had appeared less distracted by her thoughts and denied any hallucinations at this time. She had been more redirectable but continued to struggle at times with management of self-care without requiring some prompting. Patient had reported adequate sleep. She had reported no side effects from her current medications. She had reported having difficulties with concentration. She had been unable to describe the events that had led to her hospitalization but stated that she had not used any illicit substances and several days prior to at her admission. Mental Status Exam 2 MSE Comments: This is a well-nourished well-developed white female in hospital scrubs with limited grooming and eye contact. No abnormal movements, except for psychomotor retardation. Somewhat cooperative with exam in mild distress.. Speech was normal in rate and mostly normal volume with some mild increase in latency. Mood described as good. Her affect remain subdued. Thought process was linear. Thought content: patient denied suicidal or homicidal thoughts/ideation, there were no delusions reported or with less paranoia noted. She denied auditory or visual hallucinations but did appear to be responding to internal stimuli. The patient denies any current thoughts of self-harm or harm to others. She denies any symptoms of depression, anxiety, or psychosis. She also denies any obsessive thoughts, paranoia, or auditory or visual hallucinations. She is alert and oriented times person and place. Insight and judgment are impaired. Impulse control is impaired. Vitals/I&O/Wt Last Vital Signs Temp 97.8 F 08/29/24 14:00 Pulse 112 H 08/29/24 14:00 Resp 18 08/29/24 14:00 BP 120/80 08/29/24 14:00 Pulse Ox 96 08/29/24 14:00 O2 Del Method Room Air 08/29/24 06:00 Data NPU 08/18/24 17:22 08/18/24 17:22 A&P Assessment and plan (1) Acute psychosis: (2) Chronic schizophrenia: (3) Parent-child relational problem: (4) Noncompliance with medication regimen: Plan This is a 34-year-old white female with a long history of mental health and addiction issues with inpatient and outpatient services at [facility] on a limited basis going back to 2016 who presents on a 96-hour hold that she reports just represents her mother trying to control her. The patient appears irritable but denied any issues currently other than the conflict with her family denying depression, anxiety, or psychosis. She reports ongoing familial conflict with her mother, which seems to be a significant psychosocial stressor in her life. She has a history of substance use disorder but denies any current substance abuse issues. 1.? Patient given 234mg INvega IM today, continue oral 6mg invega. 156mg of Invega IM to be given on 09/01/24. 2.? Continue every 15 minute checks for safety. 3.? Encourage individual, group and milieu therapies. 4. Encourage sober living treatment after discharge at the highest level care to which she is willing to commit. 5. Get collateral information. 6. Patient on 21 day hold but now likely discharge after completion of IM invega. Involuntary Hold Information 2 96 Hour Hold: 96 Hour Involuntary Admission: Yes 96 Hour Hold Ending Date: 08/25/24 96 Hour Hold Ending Time: 16:45 Attestations NPU 2 Medical Necessity Statement*: Inpatient hospitalization is medically necessary and the clinically appropriate intervention at this time. Will monitor/initiate medications and make changes as indicated. Likely length of stay 3-4 days. Coding Level of Care Code Acute Code for Chg Fwd Diagnoses Acute psychosis F23 Chronic schizophrenia F20.9 Parent-child relational problem Z62.820 Noncompliance with medication regimen Z91.148
[2024-08-29 20:26] VITALS: BP 114/80; PULSE 97; RESP 15; TEMP 37.1; O2SAT 98
[2024-08-30 06:00] VITALS: BP 96/67; PULSE 76; RESP 18; TEMP 36.7; O2SAT 97
[2024-08-30] MEDS: paliperidone ER 6 mg Tablet PO (08:10)
[2024-08-30] MEDS: buPROPion XL (24 HR) 150 mg Tablet PO (08:10)
[2024-08-30] MEDS: nicotine 2 mg Gum BUCCAL ×3 (08:10→20:54)
[2024-08-30] MEDS: haloperidol 5 mg Tablet PO (13:45)
[2024-08-30 14:00] VITALS: BP 120/87; PULSE 98; RESP 20; TEMP 37.2; O2SAT 96
--- NOTE | 2024-08-30 16:45 | P.NPUPN_ITS ---
Subjective NPU 2 Subjective: 34-year-old female with a history of psy chosis and history of addiction who was admitted with disorganized thinking and behavior. Patient had reported improved concentration. She appeared to engage in improvement in completion of activities of daily living. She reported no side effects from her current medication regimen. Patient reported no mood symptoms at this time. Staff notes patient was able to attend groups but did appear at times distracted and bored. She had reported having difficulties with sitting still. Patient had reported excitement about going home and remained agreeable to receiving her intramuscular Invega 156mg on 09/01. Mental Status Exam 2 MSE Comments: This is a well-nourished well-developed white female in hospital scrubs with limited grooming and eye contact. No abnormal movements, except for increased hyperactivity. She was cooperative with exam in mild distress.. Speech was normal in rate and mostly normal volume with some mild increase in latency. Mood described as good. Her affect appeared brighter. Thought process was linear. Thought content: patient denied suicidal or homicidal thoughts/ideation, there were no delusions reported or with less paranoia noted. She denied auditory or visual hallucinations and did appear to be responding to internal stimuli. The patient denies any current thoughts of self-harm or harm to others. She denies any symptoms of depression, anxiety, or psychosis. She also denies any obsessive thoughts, paranoia, or auditory or visual hallucinations. She is alert and oriented times person and place. Insight and judgment are impaired. Impulse control is improving. Vitals/I&O/Wt Last Vital Signs Temp 99 F 08/30/24 14:00 Pulse 98 08/30/24 14:00 Resp 20 H 08/30/24 14:00 BP 120/87 08/30/24 14:00 Pulse Ox 96 08/30/24 14:00 O2 Del Method Room Air 08/30/24 06:00 Data NPU 08/18/24 17:22 08/18/24 17:22 A&P Assessment and plan (1) Acute psychosis: (2) Chronic schizophrenia: (3) Parent-child relational problem: (4) Noncompliance with medication regimen: Plan This is a 34-year-old white female with a long history of mental health and addiction issues with inpatient and outpatient services at [facility] on a limited basis going back to 2016 who presents on a 96-hour hold that she reports just represents her mother trying to control her. The patient appears irritable but denied any issues currently other than the conflict with her family denying depression, anxiety, or psychosis. She reports ongoing familial conflict with her mother, which seems to be a significant psychosocial stressor in her life. She has a history of substance use disorder but denies any current substance abuse issues. 1.? Patient given 234mg INvega IM today, continue oral 6mg invega. 156mg of Invega IM to be given on 09/01/24. 2.? Continue every 15 minute checks for safety. 3.? Encourage individual, group and milieu therapies. 4. Encourage sober living treatment after discharge at the highest level care to which she is willing to commit. 5. Get collateral information. 6. Patient on 21 day hold but plan for discharge in 2 days. Involuntary Hold Information 2 96 Hour Hold: 96 Hour Involuntary Admission: Yes 96 Hour Hold Ending Date: 08/25/24 96 Hour Hold Ending Time: 16:45 Attestations NPU 2 Medical Necessity Statement*: Inpatient hospitalization is medically necessary and the clinically appropriate intervention at this time. Will monitor/initiate medications and make changes as indicated. Likely length of stay 2 days. Coding Level of Care Code Acute Code for Chg Fwd Diagnoses Acute psychosis F23 Chronic schizophrenia F20.9 Parent-child relational problem Z62.820 Noncompliance with medication regimen Z91.148
[2024-08-30] MEDS: trazodone 50 mg Tablet PO (20:54)
[2024-08-30] MEDS: hyDROXYzine 25 mg Capsule 50 MG PO (20:54)
[2024-08-30 22:00] VITALS: BP 98/49; PULSE 89; RESP 18; TEMP 37.1; O2SAT 98
[2024-08-31 06:00] VITALS: BP 114/80; PULSE 118; RESP 18; TEMP 36.7; O2SAT 97
[2024-08-31] MEDS: nicotine 2 mg Gum BUCCAL ×3 (08:59→21:56)
[2024-08-31] MEDS: paliperidone ER 6 mg Tablet PO (08:59)
[2024-08-31] MEDS: buPROPion XL (24 HR) 150 mg Tablet PO (08:59)
[2024-08-31] MEDS: hyDROXYzine 25 mg Capsule 50 MG PO ×2 (08:59→17:01)
--- NOTE | 2024-08-31 09:46 | PC.NURSE ---
RESTING IN BED, FIXATED ON DISCHARGING. DENIES PAIN. DENIES SI/HI AND AVH AT THIS TIME. MOOD IS ANXIOUS WHEN OUT OF BED. FLAT AFFECT UNLESS SHE IS UPSET WANTING FOOD OR MORE HOT CHOCOLATE. RATES ANXIETY AND DEPRESSION 0/10. EVEN THOUGH SHE REQUESTED ANXIETY MEDS FOR ANXIETY. VISTARIL 50 MG WAS GIVEN ORDERED FOR INCREASED ANXIETY. DISCHARGE QUESTIONS WERE ANSWERED AND SUPPORT WAS VOICED.
[2024-08-31] MEDS: OLANZapine 5 mg ODT PO ×2 (12:58→21:55)
[2024-08-31 14:00] VITALS: BP 106/61; PULSE 88; RESP 17; TEMP 36.4; O2SAT 97
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
[2024-08-31 19:40] VITALS: BP 116/86; PULSE 84; RESP 18; TEMP 36.8; O2SAT 98
[2024-08-31] MEDS: trazodone 50 mg Tablet PO (21:55)
[2024-09-01 06:00] VITALS: BP 114/77; PULSE 87; RESP 18; TEMP 36.6; O2SAT 100
[2024-09-01] MEDS: nicotine 2 mg Gum BUCCAL (07:58)
[2024-09-01] MEDS: hyDROXYzine 25 mg Capsule 50 MG PO (07:59)
[2024-09-01] MEDS: buPROPion XL (24 HR) 150 mg Tablet PO (07:59)
[2024-09-01] MEDS: paliperidone ER 6 mg Tablet PO (07:59)
[2024-09-01] MEDS: paliperidone palmitate 156 mg Syringe IM (09:07)
--- NOTE | 2024-09-01 09:30 | PC.NURSE ---
PT VERY ANXIOUS CRYING UNCONTROLLABLY, STATING SHE IS UPSET AND NERVOUS ABOUT GOING HOME TODAY. PT DID RECEIVE HER 2ND INJECTION OF INVEGA 156 MG IM ONCE THIS AM. PT THEN WENT TO THE DAY ROOM AND WAS OBSERVED CRYING STATING SHE WAS HAVING A PANIC ATTACK ABOUT SEEING MY SISTER TODAY. DR. JON WAS UPDATED ON PT BEHAVIOR AND AGITATION/ANXIETY. NEW ORDERS RECEIVED TO GIVE XANAX 1 MG PO NOW. THIS RN DID PULL ZYDIS 5MG AND BENADRYL 50 MG BUT SPILLED WATER IN THE CUP SO BOTH MEDICATIONS WERE WASTED. AIR BOX TESTER WAS UPDATED.
[2024-09-01] MEDS: ALPRAZolam 0.5 mg Tablet 1 MG PO (09:36)
--- NOTE | 2024-09-01 10:01 | PC.NURSE ---
DENIES PAIN. DENIES SI/HI AND AVH AT THIS TIME. PT VERY UPSET, ANXIOUS AND AGITATED ABOUT GETTING DISCHARGED TODAY. PT WAS GIVEN XANAX 1 MG AND PT IMMEDIATELY STATED I FEEL SO MUCH BETTER ALREADY. PT THEN STOPPED CRYING AND SAID I GUESS I'M READY FOR DISCHARGE. RATES ANXIETY 10/10 AND DEPRESSION 0/10. SUPPORT VOICED.
--- NOTE | 2024-09-01 12:22 | DCPLANNER ---
IMM was completed on 09/01/2024 @ 6410 and pt was given a copy of rights.
[2024-09-01 12:54] VITALS: BP 120/86; PULSE 73; RESP 18; TEMP 36.4; O2SAT 99
[2024-09-01 13:10] VITALS: BP 120/86; PULSE 73; RESP 18; TEMP 36.4; O2SAT 99
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
== END 2024-09-01 16:15 | disposition home or self-care (01) | DRG 885 ==
LOC: ER 18:42 → NP 20:34
PROVIDERS: Admitting Provider Psychiatry & Neurology Psychiatry; Emergency Provider Emergency Medicine; PCP Family Medicine; Visit Provider Psychiatry & Neurology Psychiatry
DX: F20.89 Other schizophrenia (principal); Z63.8 Other specified problems related to primary support group; Z62.820 Parent-biological child conflict; T50.906A Underdosing of unspecified drugs, medicaments and biological substances, initial encounter; F17.210 Nicotine dependence, cigarettes, uncomplicated; F19.21 Other psychoactive substance dependence, in remission
CPT/HCPCS: 36415; 80053; 80178; 80306; 80307; 81001; 84443; 84703; 85025; 93005; 96372; 97150; 97165; 99285; Q0163